=== PATIENT | female | born 1970 | race Caucasian/White ===

== ENCOUNTER 2017-01-19 18:05 | Observation (INO) | payer OTHER ==
[2017-01-19] MEDS ORDERED: NITROSTAT SL PRN (18:14)
[2017-01-19] MEDS ORDERED: MORPHINE SULFATE INJ 2 MG IVP PRN (18:14)
[2017-01-19 19:17] LABS: ALANINE AMINOTRANSFERASE 55 Units/L (12-78); ALBUMIN 4.3 g/dL (3.4-5.0); ALKALINE PHOSPHATASE 90 Units/L (46-116); ASPARTATE AMINO TRANSFERASE 27 Units/L (15-37); BASOPHILS # (AUTO) 0.1 X10^3/uL (0.0-0.1); BASOPHILS % (AUTO) 1.4 % (0.2-1.0); BLOOD UREA NITROGEN 13 mg/dL (7-18); CALCIUM 8.7 mg/dL (8.5-10.1); CARBON DIOXIDE 28.1 mmol/L (21-32); CHLORIDE 102 mmol/L (98-107); COR NA(FOR HYPERGLY) 141 mmol/L (136-145); CREATININE 0.71 mg/dL (0.55-1.02); EOSINOPHILS # (AUTO) 0.1 x10^3/uL (0.0-0.2); EOSINOPHILS % (AUTO) 1.8 % (0.9-2.9); GLUCOSE 113 mg/dL (65-99); HEMATOCRIT 40.3 % (36.0-47.0); HEMOGLOBIN 13.8 g/dL (12.0-16.0); LYMPHOCYTES # (AUTO) 2.6 X10^3/uL (1.3-2.9); LYMPHOCYTES % (AUTO) 35.7 % (21.0-51.0); MAGNESIUM 2.3 mg/dL (1.7-2.9); MEAN CORPUSCULAR HEMOGLOBIN 31.1 pg (27.0-34.0); MEAN CORPUSCULAR HGB CONC 34.2 g/dL (33.0-35.0); MEAN CORPUSCULAR VOLUME 91.1 fL (80.0-100.0); MEAN PLATELET VOLUME 9.4 fL (7.4-11.0); MONOCYTES # (AUTO) 0.8 x10^3/uL (0.3-0.8); MONOCYTES % (AUTO) 10.5 % (0.0-13.0); NEUTROPHILS # (AUTO) 3.7 x10^3/uL (2.2-4.8); NEUTROPHILS % (AUTO) 50.6 % (42.0-75.0); PLATELET COUNT 265 X10^3/uL (150.0-450.0); RED BLOOD COUNT 4.42 X10^6/uL (3.5-5.4); RED CELL DISTRIBUTION WIDTH 13.6 % (11.6-16.5); SODIUM 141 mmol/L (136-145); TOTAL PROTEIN 8.5 g/dL (6.4-8.2); WHITE BLOOD COUNT 7.3 X10^3/uL (3.6-10.0); eGFR BLACK RACES > 60 (>60); eGFR NON BLACK RACES > 60 (>60)
[2017-01-19 19:30] LABS: CREATINE KINASE 51 Units/L (26-192); CREATINE KINASE MB < 1.0 ng/mL (0-4.0); TROPONIN I < 0.02 ng/mL (0-1.5)
--- NOTE | 2017-01-19 19:56 | RAD ---
Single view chest series: Indication: Chest pain, hypertension. Comparison: None available. Findings: The lung volumes are normal without focal consolidation. No pneumothorax or pleural effusi on is identified. The cardiac silhouette and pulmonary vascularity are within normal limits. Surgica l clips most consistent with thyroidectomy noted. No acute skeletal abnormality is identified. Impression: No acute cardiopulmonary abnormality. Reported By:
[2017-01-19] MEDS ORDERED: K-RIDER 10 MEQ/NS 100 ML 10 MEQ/100 ML BAG IV PRN (20:26)
[2017-01-19] MEDS ORDERED: POTASSIUM CHLORIDE LIQ 20 MEQ UDC PO PRN (20:26)
[2017-01-19] MEDS ORDERED: K-LYTE EFFERVESCENT PO PRN (20:26)
[2017-01-19] MEDS ORDERED: K-DUR TAB 20 MEQ PO PRN (20:26)
[2017-01-19 21:00] LABS: BILIRUBIN,URINE NEGATIVE (NEGATIVE); BLOOD/HEMOGLOBIN,URINE NEGATIVE (NEGATIVE); GLUCOSE, URINE NEGATIVE (NEGATIVE); KETONES,URINE NEGATIVE (NEGATIVE); LEUKOCYTE ESTERASE ,URINE NEGATIVE (NEGATIVE); NITRITES,URINE NEGATIVE (NEGATIVE); PROTEIN,URINE 1+ (NEGATIVE); UROBILINOGEN,URINE 1+ (NORMAL)
[2017-01-19 21:08] LABS: APPEARANCE,URINE CLEAR (CLEAR); COLOR,URINE DARK YELLOW (YELLOW); RBC,URINE 0-1 /HPF (NEGATIVE)
[2017-01-19 21:09] LABS: AMORPHOUS SEDIMENT,UR TRACE /HPF (NEGATIVE); BACTERIA,URINE TRACE /HPF (NEGATIVE); MUCUS,URINE MANY /HPF (NEGATIVE); SQUAMOUS EPITHELIAL CELL,UR FEW /HPF (NEGATIVE)
[2017-01-19 21:24] VITALS: BMI 29.2
[2017-01-19] MEDS: LOVENOX INJ 40 MG SYR SC SCH (21:32)
[2017-01-19] MEDS: COREG TAB 6.25 MG PO SCH (21:33)
[2017-01-19 21:57] LABS: FREE T4 (FREE THYROXINE) 1.22 ng/dL (0.76-1.46); TSH (3RD GENERATION) 1.259 uIU/mL (0.358-3.74)
[2017-01-20 01:26] LABS: CKMB % 2.4 % (<4); CREATINE KINASE 41 Units/L (26-192); CREATINE KINASE MB < 1.0 ng/mL (0-4.0); TROPONIN I < 0.02 ng/mL (0-1.5)
[2017-01-20 06:32] LABS: CHOL/HDL RATIO 13.7 (0.0-5.0)
[2017-01-20 06:46] LABS: CKMB % 2.9 % (<4); CREATINE KINASE 35 Units/L (26-192); CREATINE KINASE MB < 1.0 ng/mL (0-4.0); TROPONIN I < 0.02 ng/mL (0-1.5)
[2017-01-20] MEDS ORDERED: [UNRECOGNIZED DRUG - OTHER] PO SCH (09:00)
[2017-01-20] MEDS ORDERED: SYNTHROID 125 mcg TAB PO SCH (09:00)
[2017-01-20] MEDS ORDERED: MAXZIDE 37.5/25 MG PO SCH (09:00)
[2017-01-20] MEDS ORDERED: ASPIRIN PO SCH (09:00)
[2017-01-20] MEDS: LOVENOX INJ 40 MG SYR SC SCH (09:43)
[2017-01-20] MEDS: COREG TAB 6.25 MG PO SCH (09:44)
--- NOTE | 2017-01-20 11:37 | DR.H&P ---
H&P - History & Physical for Day of: H&P Date: 01/19/17 - Chief Complaint Chief Complaint: CHEST DISCOMFORT AND HYPERTENSION - Allergies Allergies/Adverse Reactions: Allergies Allergy/AdvReac Type Severity Reaction Status Date / Time Penicillins AdvReac Intermediate Verified 01/19/17 20:56 - History of Present Illness History of Present Illness: THE PATIENT IS A 46YO WF WEHO PRESENT TO CLINIC WITH COMPLAINT OF ELEVATED BP WITH NOSE BLEEDS X 2 IN LAST 3 WEEKS. DOES COMPLAINT OF FEELING LIKE THE ARTERY IN HER NECK IS GOING TO EXPLODE. IS HAVING CHEST PAIN THAT RUNS UP HER LEFT SHOULDER. STATES SHE IS TAKING HER BP MEDS. IS NOT ON ANYTHING FOR CHOLOESTROL AND GIVES PAST HISTORY OF 900. STATES HER FATHER SIDE USUALLY DIES FROM MASSIVE RI'S. - Past Medical History Past Medical History: Dyslipidemia, GERD, Hypertension, Hypothyroidism - Past Surgical History Surgical History: Thyroidectomy, Tonsillectomy - Family History Family Medical History: RI, Coronary Artery Disease, Hypertension Family History Comment: FATHER - RI - Social History Does patient currently use any type of tobacco product: Yes Have you used tobacco products in the last 12 months: Yes Type of Tobacco Use: Cigarettes Alcohol Use: Occasionally Drug Use: None - Medications Home Medications: Carvedilol [Coreg Tab 6.25 mg] 6.25 mg PO DAILY 01/19/17 [History Confirmed ] Levothyroxine Sodium [SYNTHROID 125 mcg TAB] 125 mcg PO DAILY 01/19/17 [History Confirmed 01/19/17] Triamterene & Hydrochlorothiaz [Triamterene/Hydrochloroth 37.5-25 mg] 1 tab PO QAM 01/19/17 [History Confirmed 01/19/17] - Review of Systems Constitutional: No Symptoms Reported Eyes: No Symptoms Reported ENT: No Symptoms Reported Respiratory: No Symptoms Reported Cardiovascular: Chest Pain, Palpitations Gastrointestinal: No Symptoms Reported Genitourinary: No Symptoms Reported Musculoskeletal: No Symptoms Reported Skin: No Symptoms Reported Neurological: No Symptoms Reported - Physical Exam Vital Signs: Temperature 97.7 F Pulse Rate [Radial] 60 Respiratory Rate 18 Blood Pressure [Left Arm] 121/59 O2 Sat by Pulse Oximetry 98 Oriented: Normal Eyes: Normal Ear: Normal Nose: Normal Throat: Normal Respiratory: Clear Throughout Cardiovascular: Normal : Normal Auscultation: Bowel Sounds: Normal Palpation: Normal Tenderness: Normal Skin: Normal Musculoskeletal: Normal Psychiatric: Normal Mood Description: Calm Affect: Normal Speech Pattern: Clear - Assessment/Plan (1) Chest pain Qualifiers: Chest pain type: C Ischemic chest pain type: I Status: Acute Plan: CARDIAC ENZYMES, STRESS TEST (2) Hypertension Qualifiers: Hypertension type: essential hypertension Qualified Code(s): I10 - Essential (primary) hypertension Status: Acute Plan: BP DIARY. ADD LISINOPRIL (3) Dyslipidemia Status: Acute Plan: LIPID PANEL
[2017-01-20 16:05] VITALS: BP 112/71
--- NOTE | 2017-01-20 18:48 | PCM.DCPLAN ---
Discharge Summary - Admission Date Date of Admission: 01/19/17 - Discharge Date Discharge Date: 01/20/17 - Admission Diagnoses (1) Chest pain Status: Acute (2) Dyslipidemia Status: Acute (3) Hypertension Status: Acute - Discharge Diagnoses Discharge Diagnosis: SAME ADMISSION - Discharge Medications Discharge Medications: Carvedilol [COREG TAB 6.25 MG *] 6.25 mg PO DAILY 01/19/17 [History] Levothyroxine Sodium [SYNTHROID 125 mcg *] 125 mcg PO DAILY 01/19/17 [History] Triamterene & Hydrochlorothiaz [Triamterene/Hydrochloroth 37.5-25 mg] 1 tab PO QAM 01/19/17 [History] Aspirin EC [ECOTRIN 325 MG *] 325 mg PO DAILY #30 tab 01/20/17 [Rx] Rosuvastatin Calcium [Crestor Tab 10 mg] 10 mg PO HS #30 tab 01/20/17 [Rx] - Hospital Course Vital Signs: Temperature 98 F Pulse Rate [Radial] 68 Respiratory Rate 18 Blood Pressure [Left Arm] 112/71 O2 Sat by Pulse Oximetry 96 Latest Lab Results: Laboratory Last Values WBC 7.3 X10^3/uL (3.6-10.0) 01/19/17 18:55 RBC 4.42 X10^6/uL (3.5-5.4) 01/19/17 18:55 Hgb 13.8 g/dL (12.0-16.0) 01/19/17 18:55 Hct 40.3 % (36.0-47.0) 01/19/17 18:55 MCV 91.1 fL (80.0-100.0) 01/19/17 18:55 MCH 31.1 pg (27.0-34.0) 01/19/17 18:55 MCHC 34.2 g/dL (33.0-35.0) 01/19/17 18:55 RDW 13.6 % (11.6-16.5) 01/19/17 18:55 Plt Count 265 X10^3/uL (150.0-450.0) 01/19/17 18:55 MPV 9.4 fL (7.4-11.0) 01/19/17 18:55 Neut % 50.6 % (42.0-75.0) 01/19/17 18:55 Lymph % 35.7 % (21.0-51.0) 01/19/17 18:55 Perkins % 10.5 % (0.0-13.0) 01/19/17 18:55 Eos % 1.8 % (0.9-2.9) 01/19/17 18:55 Baso % 1.4 % (0.2-1.0) H 01/19/17 18:55 Neut # 3.7 x10^3/uL (2.2-4.8) 01/19/17 18:55 Lymph # 2.6 X10^3/uL (1.3-2.9) 01/19/17 18:55 Perkins # 0.8 x10^3/uL (0.3-0.8) 01/19/17 18:55 Eos # 0.1 x10^3/uL (0.0-0.2) 01/19/17 18:55 Baso # 0.1 X10^3/uL (0.0-0.1) 01/19/17 18:55 Absolute Nucleated RBC 0.2 /100WBC 01/19/17 18:55 Sodium 141 mmol/L (136-145) 01/19/17 18:55 Corrected Sodium 141 mmol/L (136-145) 01/19/17 18:55 Potassium 3.3 mmol/L (3.5-5.1) L 01/19/17 18:55 Chloride 102 mmol/L (98-107) 01/19/17 18:55 Carbon Dioxide 28.1 mmol/L (21-32) 01/19/17 18:55 BUN 13 mg/dL (7-18) 01/19/17 18:55 Creatinine 0.71 mg/dL (0.55-1.02) 01/19/17 18:55 Est GFR (MDRD) Af Amer > 60 (>60) 01/19/17 18:55 Est GFR (MDRD) Non-Af > 60 (>60) 01/19/17 18:55 Glucose 113 mg/dL (65-99) H 01/19/17 18:55 Calcium 8.7 mg/dL (8.5-10.1) 01/19/17 18:55 Corrected Calcium TNP 01/19/17 18:55 Magnesium 2.3 mg/dL (1.7-2.9) 01/19/17 18:55 Total Bilirubin 0.40 mg/dL (0.2-1.0) 01/19/17 18:55 AST 27 Units/L (15-37) 01/19/17 18:55 ALT 55 Units/L (12-78) 01/19/17 18:55 Alkaline Phosphatase 90 Units/L (46-116) 01/19/17 18:55 Creatine Kinase 35 Units/L (26-192) 01/20/17 06:00 CK-MB (CK-2) < 1.0 ng/mL (0-4.0) 01/20/17 06:00 CK/CKMB % Calc 2.9 % (<4) 01/20/17 06:00 Troponin I < 0.02 ng/mL (0-1.5) 01/20/17 06:00 Total Protein 8.5 g/dL (6.4-8.2) H 01/19/17 18:55 Albumin 4.3 g/dL (3.4-5.0) 01/19/17 18:55 Globulin 4.2 g/dL (2.5-4.5) 01/19/17 18:55 Albumin/Globulin Ratio 1.0 Ratio (1.1-2.1) L 01/19/17 18:55 Triglycerides 889 mg/dL (0-150) H 01/20/17 05:50 Cholesterol 329 mg/dL (0-200) H 01/20/17 05:50 LDL Cholesterol, Calc 127 mg/dL (0-100) H 01/20/17 05:50 HDL Cholesterol 24 mg/dL (40-60) L 01/20/17 05:50 Cholesterol/HDL Ratio 13.7 (0.0-5.0) H 01/20/17 05:50 Free T4 1.22 ng/dL (0.76-1.46) 01/19/17 18:55 TSH 3rd Generation 1.259 uIU/mL (0.358-3.74) 01/19/17 18:55 Specimen Type Clean catch urine 01/19/17 20:43 Urine Color Dark yellow (YELLOW) 01/19/17 20:43 Urine Appearance Clear (CLEAR) 01/19/17 20:43 Urine pH 6.0 (5.0 - 8.0) 01/19/17 20:43 Ur Specific [place] 1.020 (1.000-1.030) 01/19/17 20:43 Urine Protein 1+ (NEGATIVE) 01/19/17 20:43 Urine Glucose (UA) Negative (NEGATIVE) 01/19/17 20:43 Urine Ketones Negative (NEGATIVE) 01/19/17 20:43 Urine Occult Blood Negative (NEGATIVE) 01/19/17 20:43 Urine Nitrite Negative (NEGATIVE) 01/19/17 20:43 Urine Bilirubin Negative (NEGATIVE) 01/19/17 20:43 Urine Urobilinogen 1+ (NORMAL) 01/19/17 20:43 Ur Leukocyte Esterase Negative (NEGATIVE) 01/19/17 20:43 Urine RBC 0-1 /HPF (NEGATIVE) 01/19/17 20:43 Urine WBC None seen /HPF (NEGATIVE) 01/19/17 20:43 Ur Squamous Epith Cells Few /HPF (NEGATIVE) 01/19/17 20:43 Amorphous Sediment Trace /HPF (NEGATIVE) 01/19/17 20:43 Urine Bacteria Trace /HPF (NEGATIVE) 01/19/17 20:43 Urine Mucus Many /HPF (NEGATIVE) 01/19/17 20:43 Ur Culture Indicated? No/not indicated 01/19/17 20:43 Hospital Course: PATIENT IS A 46-YEAR-OLD WHITE FEMALE WHO WAS A DIRECT ADMIT FROM dR. Brizuela' S OFFICE ONE DAY AGO WITH COMPLAINTS OF CHEST PAIN AND ELEVATED BLOOD PRESSURE. pATIENT HAS BEEN COMPLAINING OF INCREASE IN BLOOD PRESSURE FOR THE LAST SEVERAL MONTHS AND A LEFT CHEST PRESSURE. pATIENT HAS A PAST MEDICAL HISTORY OF HYPERTENSION, HYPERLIPIDEMIA, AND gRAVES' DISEASE STATUS POST THYROIDECTOMY. pATIENT IS CURRENTLY ON CARVEDILOL AND THYROID MEDICATION, sYNTHROID. pATIENT DENIES ANY SHORTNESS OF BREATH DIAPHORESIS OR SYNCOPE OR NEAR SYNCOPE WITH CHEST PAIN. pATIENT DOES HAVE A STRONG FAMILY HISTORY OF CORONARY ARTERY DISEASE. pATIENT WAS ADMITTED FOR SERIAL CARDIAC ENZYMES AND ekgS WHICH WERE NEGATIVE. pATIENT HAD A FASTING LIPID PROFILE WITH TRIGLYCERIDES 889, TOTAL CHOLESTEROL 329. pATIENT STATES SHE IS NOT CURRENTLY ON A STATIN. pATIENT DENIES ANY CHEST PAIN THIS A.M. pATIENT WILL BE DISCHARGED HOME TODAY TO CONTINUE HOME MEDICATIONS OF CARVEDILOL AND sYNTHROID AND START cRESTOR 10 MG DAILY AT BEDTIME. 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 pATIENT ALSO GIVEN eCOTRIN 325 BY MOUTH DAILY AND ENCOURAGED A LOW-FAT LOW CARB DIET. pATIENT INSTRUCTED TO FOLLOW-UP WITH PRIMARY CARE, dR. Brizuela IN 1 WEEK AND PATIENT WILL BE SET UP PRIOR TO DISCHARGE TODAY FOR OUTPATIENT NUCLEAR STRESS TEST. pATIENT INSTRUCTED TO RETURN TO hOSPITAL REPORT TO EMERGENCY ROOM IF CONDITION CHANGES OR WORSENS UNEXPECTEDLY PATIENT VERBALIZED UNDERSTANDING. pATIENT WAS DISCHARGED HOME BY PRIVATE VEHICLE PATIENT WAS STABLE AND IMPROVED ON DISCHARGE - Discharge Plan Disposition: 01 HOME, SELF-CARE Condition: Stable Prescriptions: Aspirin EC [ECOTRIN 325 MG *] 325 mg PO DAILY #30 tab Rosuvastatin Calcium [Crestor Tab 10 mg] 10 mg PO HS #30 tab - Follow ups/Referrals Follow ups/Referrals: DAWIT GUERRERO [Nurse Practitioner] - 1 WEEK - Instructions Instructions: Aspirin and Your Heart, Dyslipidemia, Smoking Cessation, Tips for Success, Aspirin, ASA oral tablets, Rosuvastatin Tablets, Chest Pain Observation, Hypertension Forms: Patient Portal
[2017-01-20] MEDS ORDERED: ZESTRIL TAB 10 MG PO SCH (21:00)
== END 2017-01-20 16:45 | disposition home or self-care (01) ==
LOC: MED/SURG 18:05
PROVIDERS: ADMIT Internal Medicine; ATTEND Internal Medicine
DX: R07.89 Other chest pain (principal); R68.84 Jaw pain; I10 Essential (primary) hypertension; K21.9 Gastro-esophageal reflux disease without esophagitis; E03.8 Other specified hypothyroidism; I25.10 Atherosclerotic heart disease of native coronary artery without angina pectoris; E78.2 Mixed hyperlipidemia
CPT/HCPCS: 36415; 71010; 80053; 80061; 81001; 82550; 82553; 83735; 84439; 84443; 84484; 85025; 93005; 93010; 94760; A4216; A4222; G0378; J1650